=== PATIENT | male | born 1945 | race Caucasian/White ===

== ENCOUNTER 2021-08-01 16:11 | Inpatient (IN) | payer BC, MEDICARE ==
[~2021-08-01] VITALS: Ht 180.3 cm; Wt 68.0 kg
[2021-08-01 17:23] LABS: BUN/CREATININE RATIO 23 (0-10)
[2021-08-01 17:39] LABS: HEMOGLOBIN 12.6 gm/dl (14.0-17.5); RED BLOOD COUNT 4.21 M/UL (4.20-5.50); WHITE BLOOD COUNT 18.6 K/UL (4.5-11.0)
[2021-08-02] MEDS ORDERED: MELATONIN3 MG PO ×2 (01:16→13:27)
[2021-08-02 03:08] LABS: HEMOGLOBIN 11.8 gm/dl (14.0-17.5); RED BLOOD COUNT 3.97 M/UL (4.20-5.50); WHITE BLOOD COUNT 20.1 K/UL (4.5-11.0)
[2021-08-02 03:54] LABS: BUN/CREATININE RATIO 20 (0-10)
[2021-08-02] MEDS ORDERED: CARDIO PLUS PO (13:26)
[2021-08-02] MEDS ORDERED: AZO CRANBERRY1 EAC1 PO (13:27)
[2021-08-02] MEDS ORDERED: ELIQUIS 5 MG TAB5 MG PO (14:40)
[2021-08-02] MEDS ORDERED: ASPIRIN EC81 MG PO (14:40)
[2021-08-02] MEDS ORDERED: CARBIDOPA-LEVO1 EA14 PO ×2 (14:40→14:51)
[2021-08-02] MEDS ORDERED: LOPRESSOR 25 MG25 MG PO (14:40)
[2021-08-02] MEDS ORDERED: KEFLEX CAP 250250 MG PO (14:42)
== END 2021-08-02 17:30 | disposition home or self-care (01) | DRG 281 ==
LOC: ER1 16:11 → PROG CARE 18:15 → CDU 18:15 → PROG CARE 08-02 00:16
PROVIDERS: Emergency Medicine; ADMIT Internal Medicine
PROC: B24BZZZ Ultrasonography of Heart with Aorta (ICD-10-PCS; principal; 2021-08-02)
DX: I48.0 Paroxysmal atrial fibrillation (principal); I21.A1 Myocardial infarction type 2; N30.00 Acute cystitis without hematuria; I08.1 Rheumatic disorders of both mitral and tricuspid valves; G20 Parkinson's disease; Z20.822 Contact with and (suspected) exposure to COVID-19; I10 Essential (primary) hypertension; Z79.01 Long term (current) use of anticoagulants; Z82.3 Family history of stroke; Z82.49 Family history of ischemic heart disease and other diseases of the circulatory system
CPT/HCPCS: ECHO; 36415; 71045; 80048; 81001; 82550; 82553; 83735; 83874; 84439; 84443; 84484; 85025; 85610; 85730; 93005; 93306; 96374; 96375; 99285; J0696; J1650; U0002

== ENCOUNTER → 2022-01-27 | Outpatient (CLI) | payer BC, MEDICARE ==
[~2022-01-27] MED LIST: ASPIRIN EC81 MG PO; AZO CRANBERRY1 EAC1 PO; CARBIDOPA-LEVO1 EA14 PO; CARDIO PLUS PO; ELIQUIS 5 MG TAB5 MG PO; KEFLEX CAP 250250 MG PO; LOPRESSOR 25 MG25 MG PO; MELATONIN3 MG PO
== END ==
LOC: KOH-I 14:16
DX: M54.50 Low back pain, unspecified (principal); M25.551 Pain in right hip; M25.552 Pain in left hip; M47.816 Spondylosis without myelopathy or radiculopathy, lumbar region
CPT/HCPCS: 72100; 73522

== ENCOUNTER → 2022-05-24 | Outpatient (CLI) | payer BC, MEDICARE | LOC: EMI 03-08 09:30 | DX: M51.17 Intervertebral disc disorders with radiculopathy, lumbosacral region (principal); M43.17 Spondylolisthesis, lumbosacral region | CPT/HCPCS: 72148 ==